=== PATIENT | male | born 1985 | race American Indian/Alaskan Native ===

== ENCOUNTER 2019-07-20 22:43 | Emergency (ER) | payer BC ==
[2019-07-20 22:57] VITALS: BP 172/99
--- NOTE | 2019-07-20 23:59 | XRay Report ---
. RIGHT HAND AND LONG FINGER, 3 VIEWS INDICATION / CLINICAL INFORMATION: middle finger injury. COMPARISON: None available. 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 No fracture or dislocation is seen within the right hand or long finger. No radiopaque foreign body is seen. Signer Name: Luis Valencia MD Signed: 07/20/2019 11:55 PM Workstation Name: [id number]
[2019-07-21] MEDS ORDERED: XYLOCAINE 1% MPF 5 mL ONE (02:13)
[2019-07-21] MEDS ORDERED: TRIPLE ANTIBIOTIC TP ONE ×2 (02:33→02:37)
[2019-07-21] MEDS ORDERED: NORCO 5/325 PO ONE (02:33)
[2019-07-21] MEDS ORDERED: ZOFRAN ODT PO ONE (02:33)
[2019-07-21] MEDS ORDERED: IBUPROFEN PO ONE (02:33)
--- NOTE | 2019-07-21 02:46 | Emergency Department Report ---
ED General Adult HPI - General Chief complaint: Wound/Laceration Stated complaint: RT HAND LACERATION Source: patient Mode of arrival: Ambulatory Limitations: No Limitations - History of Present Illness Initial comments: Patient is a 34-year-old -[place] male with no past medical history who presents with acute onset persistent painful bleeding distal right middle finger laceration after he accidentally cut his right middle finger with a small axe as he tried to cut some wood one hour ago. Patient denies numbness or tingling or weakness of the right hand and right middle finger. Patient states that he is not up-to-date with his tetanus vaccination. Patient denies syncope, chest pain, shortness of breath, change in vision or numbness and tingling of right hand. MD Complaint: right middle finger laceration -: Sudden, hour(s) (1) Location: upper extremity (right middle finger) Radiation: non-radiation Severity scale (0 -10): 10 Quality: aching, sharp, constant Consistency: constant Improves with: none Worsens with: none Associated Symptoms: denies other symptoms. denies: confusion, chest pain, cough, diaphoresis, fever/chills, headaches, loss of appetite, malaise, nausea/vomiting, rash, seizure, shortness of breath, syncope, weakness Treatments Prior to Arrival: none - Related Data Previous Rx's Medication Instructions Recorded Last Taken Type Acetaminophen/Codeine [Tylenol 1 tab PO Q6H PRN #10 tab 07/21/19 Unknown Rx /Codeine # 3 tab] Ibuprofen [Motrin] 800 mg PO Q8HR PRN #20 tablet 07/21/19 Unknown Rx Sulfamethoxazole/Trimethoprim 1 each PO Q12H #20 tablet 07/21/19 Unknown Rx [Bactrim DS TAB] Allergies Allergy/AdvReac Type Severity Reaction Status Date / Time strawberry Allergy Swelling Verified 07/20/19 22:47 ED Review of Systems ROS: Stated complaint: RT HAND LACERATION Other details as noted in HPI Constitutional: denies: chills, fever Eyes: denies: eye pain, eye discharge, vision change ENT: denies: ear pain, throat pain Respiratory: denies: cough, shortness of breath, wheezing Cardiovascular: denies: chest pain, palpitations Endocrine: no symptoms reported Gastrointestinal: denies: abdominal pain, nausea, diarrhea Genitourinary: denies: urgency, dysuria Musculoskeletal: arthralgia, other (right middle finger laceration with nail avulsion). denies: back pain, joint swelling Skin: other (Bleeding distal right middle finger laceration). denies: rash, lesions Neurological: denies: headache, weakness, paresthesias Psychiatric: denies: anxiety, depression Hematological/Lymphatic: denies: easy bleeding, easy bruising ED Past Medical Hx - Past Medical History Previous Medical History?: Yes Hx Hypertension: Yes - Surgical History Past Surgical History?: No - Social History Smoking Status: Never Smoker Substance Use Type: None - Medications Home Medications: Home Medications Medication Instructions Recorded Confirmed Last Taken Type Acetaminophen/Codeine [Tylenol 1 tab PO Q6H PRN #10 tab 07/21/19 Unknown Rx /Codeine # 3 tab] Ibuprofen [Motrin] 800 mg PO Q8HR PRN #20 tablet 07/21/19 Unknown Rx Sulfamethoxazole/Trimethoprim 1 each PO Q12H #20 tablet 07/21/19 Unknown Rx [Bactrim DS TAB] ED Physical Exam - General Limitations: No Limitations General appearance: alert, in no apparent distress - Head Head exam: Present: atraumatic, normocephalic - Eye Eye exam: Present: normal appearance, PERRL, EOMI Pupils: Present: normal accommodation - ENT ENT exam: Present: normal exam, normal orophraynx, mucous membranes moist, TM's normal bilaterally, normal external ear exam - Neck Neck exam: Present: normal inspection, full ROM. Absent: tenderness, meningismus - Respiratory Respiratory exam: Present: normal lung sounds bilaterally. Absent: respiratory distress, wheezes, rales, rhonchi, chest wall tenderness, accessory muscle use, decreased breath sounds - Cardiovascular Cardiovascular Exam: Present: regular rate, normal rhythm, normal heart sounds. Absent: systolic murmur, diastolic murmur, rubs, gallop - GI/Abdominal GI/Abdominal exam: Present: soft, normal bowel sounds. Absent: tenderness, hyperactive bowel sounds, hypoactive bowel sounds, organomegaly, mass - Rectal Rectal exam: Present: deferred - Extremities Exam Extremities exam: Present: normal inspection, tenderness (Distal right middle finger 5 cm laceration with bleeding), normal capillary refill - Back Exam Back exam: Present: normal inspection, full ROM. Absent: tenderness, CVA tenderness (R), CVA tenderness (L), muscle spasm, paraspinal tenderness, vertebral tenderness - Neurological Exam Neurological exam: Present: alert, oriented X3, CN II-XII intact, normal gait, reflexes normal - Psychiatric Psychiatric exam: Present: normal affect, normal mood - Skin Skin exam: Present: warm, dry, intact, normal color, other (Bleeding distal right middle finger 5 cm laceration with tenderness). Absent: rash ED Course Vital Signs 07/20/19 22:56 Temperature 98.2 F Pulse Rate 97 H Respiratory 18 Rate Blood Pressure 172/99 [Left] O2 Sat by Pulse 97 Oximetry - Reevaluation(s) Reevaluation #1: 07/21/19 02:56 This is a 34-year-old [place] male who presented to the ED with bleeding disorder right middle finger laceration. In the ED, patient is alert and oriented 3 and is not in distress. Patient was treated for pain in the ED and right hand x-ray shows no acute fracture of right middle finger. The distal bleeding right middle finger laceration was cleaned thoroughly and local anesthetic lidocaine 1% injected around it. When anesthesia was fully achieved, patient's finger was sutured per protocol and patient tolerated the procedure well. The wound was then dressed appropriately and the patient discharged home on medications and advised to follow-up with his primary care physician in 7-10 days for reevaluation. Patient was also advised to return to the ED immediately if the wound pain gets worse or should he develop nausea, vomiting, fever, chills, swelling right middle finger, erythematous right middle finger or worsening pain. Patient was otherwise advised to return to the ED or to his primary care physician in 12-14 days for suture removal. - Laceration /Wound Repair Right Distal Finger Wound Location: upper extremity (distal right middle finger laceration) Wound Length (cm): 5 Wound's Depth, Shape: superficial, nail-avulsed Wound Explored: contaminated Irrigated w/ Saline (ccs): 40 Betadine Prep?: Yes Anesthesia: 1% Lidocaine Volume Anesthetic (ccs): 5 Wound Debrided: extensive Wound Repaired With: sutures Suture Size/Type: 4:0, proline Number of Sutures: 14 Layer Closure?: No Sterile Dressing Applied?: Yes Progress: Patient tolerated procedure well. Post-procedure evaluation shows the right middle finger is neurovascularly intact. ED Medical Decision Making - Radiology Data Radiology results: report reviewed Right hand x-ray: No acute fractures or subluxations - Medical Decision Making This is a 34-year-old [place] male who presented to the ED with bleeding disorder right middle finger laceration. In the ED, patient is alert and oriented 3 and is not in distress. Patient was treated for pain in the ED and right hand x-ray shows no acute fracture of right middle finger. The distal bleeding right middle finger laceration was cleaned thoroughly and local anesthetic lidocaine 1% injected around it. When anesthesia was fully achieved, patient's finger was sutured per protocol and patient tolerated the procedure well. The wound was then dressed appropriately and the patient discharged home on medications and advised to follow-up with his primary care physician in 7-10 days for reevaluation. Patient was also advised to return to the ED immediately if the wound pain gets worse or should he develop nausea, vomiting, fever, chills, swelling right middle finger, erythematous right middle finger or worsening pain. Patient was otherwise advised to return to the ED or to his primary care physician in 12-14 days for suture removal. - Differential Diagnosis right middle finger laceration; fracture of right middle finger, sprain Critical care attestation.: If time is entered above; I have spent that time in minutes in the direct care of this critically ill patient, excluding procedure time. ED Disposition Clinical Impression: Laceration of right middle finger w/o foreign body with damage to nail Qualifiers: Encounter type: initial encounter Qualified Code(s): S61.312A - Laceration wit hout foreign body of right middle finger with damage to nail, initial encounter Disposition: - TO HOME OR SELFCARE Is pt being admited?: No Does the pt Need Aspirin: No Condition: Stable Instructions: Laceration (ED), Finger Laceration (ED) Additional Instructions: Take medications with food, drink plenty of fluids and follow up with your primary care physician in 7-10 days for reevaluation. Return to the ED immediately if symptoms get worse. Otherwise return to the ED or to your primary care physician for suture removal in 12-14 days. Prescriptions: Sulfamethoxazole/Trimethoprim [Bactrim DS TAB] 1 each PO Q12H #20 tablet Ibuprofen [Motrin] 800 mg PO Q8HR PRN #20 tablet PRN Reason: Pain , Severe (7-10) Acetaminophen/Codeine [Tylenol /Codeine # 3 tab] 1 tab PO Q6H PRN #10 tab PRN Reason: Pain , Severe (7-10) Referrals: PRIMARY CARE,MD [Primary Care Provider] - 3-5 Days Time of Disposition: 02:43 Print Language: LATVIAN
== END 2019-07-21 03:00 | disposition home or self-care (01) ==
LOC: ED 22:43
DX: S61.312A Laceration without foreign body of right middle finger with damage to nail, initial encounter (principal); I10 Essential (primary) hypertension; Z79.1 Long term (current) use of non-steroidal anti-inflammatories (NSAID); Z79.899 Other long term (current) drug therapy; Z91.018 Allergy to other foods; W26.8XXA Contact with other sharp object(s), not elsewhere classified, initial encounter; Y93.89 Activity, other specified; Y92.89 Other specified places as the place of occurrence of the external cause; Y99.8 Other external cause status
CPT/HCPCS: A6250; Q0162

== ENCOUNTER 2019-08-04 14:57 | Emergency (ER) | payer BC ==
[2019-08-04 15:35] VITALS: BP 156/95
[2019-08-04] MEDS ORDERED: BOOSTRIX IM ONE (15:37)
--- NOTE | 2019-08-04 15:39 | Emergency Department Report ---
Suture/Staple Removal - [facility] Chief Complaint: Laceration/Recheck/Suture Stated Complaint: RT HAND STITCHS REMOVED Time Seen by Provider: 08/04/19 15:34 When Sutures or Hospers Placed: 07/20/19 Wound Location: right middle finger ED Review of Systems ROS: Stated complaint: RT HAND STITCHS REMOVED Other details as noted in HPI ED Past Medical Hx - Past Medical History Previous Medical History?: Yes Hx Hypertension: Yes - Surgical History Past Surgical History?: No - Social History Smoking Status: Never Smoker Substance Use Type: None - Medications Home Medications: Home Medications Medication Instructions Recorded Confirmed Last Taken Type Acetaminophen/Codeine [Tylenol 1 tab PO Q6H PRN #10 tab 07/21/19 Unknown Rx /Codeine # 3 tab] Ibuprofen [Motrin] 800 mg PO Q8HR PRN #20 tablet 07/21/19 Unknown Rx Sulfamethoxazole/Trimethoprim 1 each PO Q12H #20 tablet 07/21/19 Unknown Rx [Bactrim DS TAB] Suture Removal Exam - Exam General: Vital signs noted. No distress. Alert and acting appropriately. Other Systems: All other systems reviewed and are unremarkable. ED Recheck MDM - Medical Decision Making pt is unsure of his last tetanus was cut with an axe on 07/20/19 and had sutures placed at that time here for suture removal no fever, no draingae, no erythema, no pain pt completed course of abx pt given tetanus immunization today wound to the distal end of the right middle finger and nail is well healed, well approximated, no cellulitis, no drainage, appears to have dry/ skin at the tip of the finger, all sutures removed advised to continue to keep clean and dry. follow up with a PCP as needed. return to the emergency room for any new or worsening symptoms. Critical care attestation.: If time is entered above; I have spent that time in minutes in the direct care of this critically ill patient, excluding procedure time. ED Disposition Clinical Impression: Visit for suture removal Disposition: TO HOME OR SELFCARE Is pt being admited?: No Does the pt Need Aspirin: No Condition: Stable Instructions: Suture Removal (ED), Diphtheria Tetanus and Pertussis Vaccination (ED) Additional Instructions: follow up with a primary care doctor as needed. return to the emergency room for any new or worsening symptoms. Referrals: [facility] [Provider Group] - as needed Time of Disposition: 15:38 Print Language: SPANISH
== END 2019-08-04 16:52 | disposition home or self-care (01) ==
LOC: ED 14:57
DX: S61.212D Laceration without foreign body of right middle finger without damage to nail, subsequent encounter (principal); I10 Essential (primary) hypertension; Z91.018 Allergy to other foods; W26.8XXD Contact with other sharp object(s), not elsewhere classified, subsequent encounter
CPT/HCPCS: 90471; 90715